=== PATIENT | female | born 1970 | race Caucasian/White ===

== ENCOUNTER 2023-01-19 22:03 | Emergency (ER) | payer BC, OTHER ==
[~2023-01-19] VITALS: Ht 180.3 cm; Wt 77.1 kg
[2023-01-19 22:47] VITALS: O2SAT 99
[2023-01-19] MEDS ORDERED: TETANUS/DIPHTHERIA TOX ADULT 0.5 ML SYR IM ONE (23:00)
[2023-01-19] MEDS ORDERED: AMOX TR-K CLV1 EAC2 PO (23:02)
== END 2023-01-19 23:19 | disposition home or self-care (01) ==
LOC: ER 22:06
DX: S00.87XA Other superficial bite of other part of head, initial encounter (principal); W54.0XXA Bitten by dog, initial encounter; Y92.89 Other specified places as the place of occurrence of the external cause
CPT/HCPCS: 90714; 99282